=== PATIENT | male | born 1985 | race Two or more races ===

== ENCOUNTER 2019-04-16 12:53 | Emergency (ER) | payer OTHER ==
[~2019-04-16] VITALS: Ht 167.6 cm; Wt 72.6 kg
[2019-04-16 17:03] VITALS: BP 121/77
[2019-04-16] MEDS ORDERED: LIDOCAINE 1% HCL (LOCAL ANESTH.) INJ 20ML MDV IJ ONE (17:15)
[2019-04-16] MEDS ORDERED: ACETAMINOPHEN/CODEINE#3 (300/30mg) TAB PO ONE (17:15)
== END 2019-04-16 18:23 | disposition home or self-care (01) ==
LOC: ER 12:59
DX: S63.91XA Sprain of unspecified part of right wrist and hand, initial encounter (principal); L02.414 Cutaneous abscess of left upper limb; X58.XXXA Exposure to other specified factors, initial encounter; Y93.89 Activity, other specified; Y92.89 Other specified places as the place of occurrence of the external cause; Y99.8 Other external cause status; R51 Headache
CPT/HCPCS: 10060; 73110; 99283; J2001

== ENCOUNTER 2019-04-19 12:27 | Emergency (ER) | payer OTHER ==
[~2019-04-19] VITALS: Ht 167.6 cm; Wt 72.6 kg
[2019-04-19 13:27] VITALS: BP 128/69
[2019-04-19] MEDS ORDERED: IBUPROFEN 800 MG TAB PO ONE (14:45)
== END 2019-04-19 14:52 | disposition home or self-care (01) ==
LOC: ER 12:27
DX: L02.414 Cutaneous abscess of left upper limb (principal); Z48.817 Encounter for surgical aftercare following surgery on the skin and subcutaneous tissue